=== PATIENT | male | born 1980 | race Caucasian/White ===

== ENCOUNTER 2024-11-23 17:34 | Emergency (ER) | payer OTHER, SELFPAY ==
[2024-11-23 17:35] VITALS: BP 138/107; PULSE 92; RESP 16; TEMP 36.7; O2SAT 99; BMI 30.5
[2024-11-23] MEDS: cycloBENZAPRine HCl 10 MG Tablet PO (18:36)
[2024-11-23] MEDS: traMADol 50 MG Tablet PO (18:36)
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
[2024-11-23 18:58] VITALS: BP 128/76; PULSE 71; RESP 16; TEMP 36.5; O2SAT 99
== END 2024-11-23 18:58 | disposition home or self-care (01) ==
PROVIDERS: Emergency Provider Emergency Medicine; Visit Provider Emergency Medicine
DX: S06.0X0A Concussion without loss of consciousness, initial encounter (principal); M54.2 Cervicalgia; R10.84 Generalized abdominal pain; V57.5XXA Driver of pick-up truck or van injured in collision with fixed or stationary object in traffic accident, initial encounter; Y92.410 Unspecified street and highway as the place of occurrence of the external cause
CPT/HCPCS: 99283